=== PATIENT | male | born 1980 | race African-American/Black ===

== ENCOUNTER 2022-09-25 09:06 | Emergency (ER) | payer SELFPAY ==
[~2022-09-25] VITALS: Ht 190.5 cm; Wt 117.9 kg
[2022-09-25 09:28] VITALS: O2SAT 100
== END 2022-09-25 09:44 | disposition home or self-care (01) ==
LOC: ER 09:10
DX: L84 Corns and callosities (principal)
CPT/HCPCS: 99282